=== PATIENT | female | born 1970 | race Caucasian/White ===

== ENCOUNTER 2023-02-23 12:39 | Emergency (ER) | payer SELFPAY ==
[2023-02-23 13:10] LABS: Absolute Lymphocytes (CBC) 1.9 K/uL (0.7-4.9); Hematocrit 43.4 % (36.0-45.0); MCV 89.3 fL (80-100); MPV 7.1 fL (7.6-11.3); Platelets 393 thou/uL (152-406); RBC Red Blood Cell Count 4.86 M/uL (3.86-4.86)
[2023-02-23] MEDS ORDERED: ONDANSETRON 4 MG/2 ML VIAL ONE (13:16)
[2023-02-23] MEDS ORDERED: MORPHINE 4 MG/ML SYR ONE (13:16)
[2023-02-23] MEDS ORDERED: NA CHLORIDE 0.9% 1,000 ML ONE (13:16)
[2023-02-23 13:20] LABS: Specific Gravity 1.015 (1.005-1.030); Urine Bacteria None Seen /HPF (<20); Urine Bilirubin NEGATIVE (Negative); Urine Blood Negative (Negative); Urine Clarity Turbid (Clear); Urine Color Light-Yellow (Yellow); Urine Glucose NEGATIVE (Negative); Urine Protein NEGATIVE (Negative); Urine RBC <5 /HPF (None Seen); Urine Urobilinogen Normal (Normal)
[2023-02-23 13:26] LABS: Albumin 4.1 g/dL (3.4-5.0); Bilirubin Total 0.4 mg/dL (0.2-1.0); Potassium 3.1 mEq/L (3.5-5.1); Protein, Total 7.7 g/dL (6.4-8.2)
[2023-02-23] MEDS ORDERED: HYDROMORPHONE HCL 1 MG/ML INJ ONE (14:00)
--- NOTE | 2023-02-23 14:13 | RAD REPORT ---
EXAM DESCRIPTION: CT - Abdomen Pelvis W Contrast - 02/23/2023 1:41 pm CLINICAL HISTORY: Abdominal pain COMPARISON: none. TECHNIQUE: Computed axial tomography of the abdomen pelvis was obtained. 100 cc Isovue-300 was admin istered intravenously. Oral contrast was not requested which limits evaluation of bowel and appendix All CT scans are performed using dose optimization technique as appropriate and may include automated exposure control or mA/KV adjustment according to patient size. FINDINGS: There is a delay concentration of contrast within the right kidney. A 9 centimeter round f luid collection extends from the medial aspect of the right kidney and displaces the second portion o f the duodenum medially. It also compresses the IVC and gallbladder. Ill-defined fluid lies adjacent to the medial aspect of 9 centimeter round fluid collection and extends adjacent to the pancreatic he ad and third portion of the duodenum. Mild dilatation of the right renal calices is present. The liver, spleen, remainder the pancreas, adrenals and left kidney are unremarkable. There is no evidence diverticulitis. 2 centimeter left ovarian cyst Small to moderate umbilical hernia contains fat. Small to moderate right inguinal hernia Post surgical changes involve the lumbar spine IMPRESSION: 9 centimeter round fluid collection extends from the medial aspect of the right kidney. This may represent a parapelvic cyst which compresses the right renal pelvis. The surrounding fluid c ould be leakage from the cyst. Another consideration but probably less likely is that this represents a massively dilated right renal pelvis. A CT scan of the abdomen with delayed images would be helpfu l to differentiate between the 2.
--- NOTE | 2023-02-23 15:58 | EDPHYS ---
Physician Documentation [facility] Name: Millicent Raygoza Age: 53 yrs Sex: Female : 1970 Arrival Date: 02/23/2023 Time: 12:39 Bed 20 Private MD: ED Physician Juan Bro HPI: 02/23 17:43 This 53 yrs old Female presents to ER via Ambulatory with complaints of Flank Pain. kb 17:43 The patient presents with abdominal pain right lower quadrant. Onset: The kb symptoms/episode began/occurred 3 day(s) ago, and became worse today. The symptoms radiate to the right flank. Associated signs and symptoms: Pertinent positives: nausea and vomiting, Pertinent negatives: fever. The symptoms are described as constant. Modifying factors: The symptoms are alleviated by nothing, the symptoms are aggravated by pressure. Severity of pain: At its worst the pain was moderate severe in the emergency department the pain is unchanged. The patient has not experienced similar symptoms in the past. The patient has not recently seen a physician. Pt reports RLQ pain that started Dyllan and has gotten worse since onset. . 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 - Social history:: Smoking status: Patient denies any tobacco usage or history of. ROS: 17:39 Constitutional: Negative for fever, chills, and weight loss. kb 17:39 Abdomen/GI: Positive for abdominal pain, nausea and vomiting. 17:39 Back: Positive for flank pain, on the right. 17:39 All other systems are negative. Exam: 17:39 Constitutional: This is a well developed, well nourished patient who is awake, alert, kb and in no acute distress. Head/Face: Normocephalic, atraumatic. ENT: Moist Mucous membranes Cardiovascular: Regular rate and rhythm with a normal S1 and S2. No gallops, murmurs, or rubs. No pulse deficits. Respiratory: Respirations even and unlabored. No increased work of breathing. Talking in full sentences Back: No spinal tenderness. No costovertebral tenderness. Full range of motion. Skin: Warm, dry with normal turgor. Normal color. MS/ Extremity: Pulses equal, no cyanosis. Neurovascular intact. Full, normal range of motion. Neuro: Awake and alert, GCS 15, oriented to person, place, time, and situation. Moves all extremities. Normal gait. 17:39 Abdomen/GI: Inspection: abdomen appears normal, Bowel sounds: normal, in all quadrants, Palpation: soft, in all quadrants, moderate abdominal tenderness, in the right lower quadrant. Vital Signs: 12:40 BP 145 / 80; Pulse 72; Resp 20; Temp 99(TE); Pulse Ox 99% on R/A; Weight 79.38 kg; ss Height 5 ft. 4 in. ; Pain 9/10; 14:05 BP 155 / 73; Pulse 64; Resp 15; Pulse Ox 100% ; Pain 6/10; jl7 16:00 BP 140 / 65; Pulse 64; Resp 15; Pulse Ox 100% ; jl7 12:40 Body Mass Index 30.04 (79.38 kg, 162.56 cm) ss 12:40 Pain Scale: Adult ss 14:05 Pain Scale: Adult jl7 MDM: 12:46 Patient medically screened. kb 17:40 Differential diagnosis: nephrolithiasis, pyelonephritis, UTI, appendicitis. Data kb reviewed: vital signs, nurses notes. Consideration of Admission/Observation Escalation of care including admission/observation considered. Pt educated on results and need for transfer to [place] for urology. Pt states she does not want to be transferred or admitted. States they are here from out of state and are going home tomorrow. States she will go to the hospital when they get back home. Pt educated on risks of leaving. Pt and still wish to be discharged. . Counseling: I had a detailed discussion with the patient and/or guardian regarding: the historical points, exam findings, and any diagnostic results supporting the discharge/admit diagnosis, lab results, radiology results, the need to transfer to another facility. Refusal of service: The patient/guardian displays adequate decision making capability and despite a detailed discussion of alternatives, benefits, risks, and consequences refuses: Admission to the hospital for further work-up and treatment. ED course: Patient has decided to leave our facility AGAINST MEDICAL ADVICE. I have assessed the patient's ability to make an informed decision and it is my opinion at this time that the patient has the medical decision-making capacity to comprehend information regarding current medical condition and appreciates the impact of the disease or condition and the consequences of various options for treatment, including foregoing treatment. The patient possesses the ability to evaluate all treatment options, compare the risk and benefits of each option, communicate choice and is able to make rational choices. I have explained to the patient further testing, treatment, and evaluation I would like to perform during the current emergency department visit as well as any possible alternatives that could be accomplished in a timely manner. I have outlined the possible risk of foregoing any or all of these interventions and the patient understands and acknowledges that the decision to leave may result in undesirable consequences such as , permanent disability, and/or loss of current lifestyle. Even though leaving AMA a is not ideal, I have instructed the patient to follow any discharge instructions given, take any medications prescribed and resume care as soon as possible with another provider. Additionally, I have clearly stated that the patient is welcome to return at any time to continue care at our facility.. 02/23 12:50 Order name: CBC with Diff; Complete Time: 13:18 kb 02/23 12:50 Order name: CMP; Complete Time: 13:32 kb 02/23 12:50 Order name: Lipase; Complete Time: 13:32 kb 02/23 12:50 Order name: Urinalysis w/ reflexes; Complete Time: 13:32 kb 02/23 12:50 Order name: CT Abd/Pelvis - IV Contrast Only; Complete Time: 14:16 kb 02/23 12:50 Order name: IV Saline Lock; Complete Time: 13:04 kb 02/23 12:50 Order name: Labs collected and sent; Complete Time: 13:04 kb Administered Medications: 13:11 Drug: NS 0.9% IV 1000 ml Route: IV; Rate: 1 bolus; Site: right antecubital; hb 16:00 Follow up: IV Status: Completed infusion jl7 16:08 Follow up: IV Intake: 600ml 7 13:12 Drug: Ondansetron IVP 4 mg Route: IVP; Site: right antecubital; hb 16:08 Follow up: Response: No adverse reaction 7 13:12 Drug: morphine IVP or IV 4 mg Route: IVP; Infused Over: 4 mins; Site: right antecubital;hb 14:00 Follow up: Response: No adverse reaction; Pain is unchanged, physician notified jl7 13:53 Drug: HYDROmorphone IVP 1 mg Route: IVP; Site: right antecubital; jl7 14:15 Follow up: Response: No adverse reaction; Marked relief of symptoms; Pain is decreased jl7 16:07 Drug: Potassium Chloride PO 40 mEq Route: PO; jl7 16:07 Follow up: Response: Medication administered at discharge. jl7 Disposition Summary: 02/23/23 15:57 Discharge Ordered Location: Home kb Condition: Stable kb Diagnosis - 9cm fluid collection extends from the medial aspect of right kidney kb Followup: kb - With: Emergency Department - When: As needed - Reason: Worsening of condition Followup: kb - With: Private Physician - When: 2 - 3 days - Reason: Recheck today's complaints, Continuance of care, Re-evaluation by your physician Discharge Instructions: - Discharge Summary Sheet kb - Renal Mass kb Forms: - Medication Reconciliation Form kb - Thank You Letter kb - Antibiotic Education kb - Prescription Opioid Use kb - Patient Portal Instructions kb - Leadership Thank You Letter kb Prescriptions: - Tramadol 50 mg Oral Tablet - take 1 tablet by ORAL route every 8 hours as needed; 12 tablet; Refills: 0, kb Product Selection Permitted Signatures: Dispatcher [employer] Kaylen Thompson FNP-C FNP-Savita Stokes, RN RN Chanel Branch, Christine Delcid RN, RN RN jl7
--- NOTE | 2023-02-23 15:58 | ER ---
Nurse's Notes [facility] Name: Millicent Raygoza Age: 53 yrs Sex: Female : 1970 Arrival Date: 02/23/2023 Time: 12:39 Bed 20 Private MD: Diagnosis: 9cm fluid collection extends from the medial aspect of right kidney Presentation: 02/23 12:40 Chief complaint: Patient states: R flank pain that radiates towards abdomen that began ss last night is getting worse throughout the day. +nausea. Coronavirus screen: Client denies travel out of the [place] in the last 14 days. Ebola Screen: Patient denies exposure to infectious person. Patient denies travel to an Ebola-affected area in the 21 days before illness onset. Initial Sepsis Screen: Does the patient meet any 2 criteria? No. Patient's initial sepsis screen is negative. Does the patient have a suspected source of infection? No. Patient's initial sepsis screen is negative. Risk Assessment: Do you want to hurt yourself or someone else? Patient reports no desire to harm self or others. Onset of symptoms was February 23, 2023. 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 - Social history:: Smoking status: Patient denies any tobacco usage or history of. Screenin:13 [facility] ED Fall Risk Assessment (Adult) Score/Fall Risk Level 0 - 2 = Low Risk hb Oriented to surroundings, Maintained a safe environment. Abuse screen: Denies threats or abuse. Denies injuries from another. Nutritional screening: No deficits noted. Tuberculosis screening: No symptoms or risk factors identified. Assessment: 13:13 General: Appears in no apparent distress. uncomfortable, Behavior is cooperative, hb anxious, crying. Pain: Pain currently is 9 out of 10 on a pain scale. Neuro: Level of Consciousness is awake, alert, obeys commands, Oriented to person, place, time, situation. Cardiovascular: Patient's skin is warm and dry. Respiratory: Respiratory effort is even, unlabored, Respiratory pattern is regular, symmetrical. GI: Reports nausea. : No signs and/or symptoms were reported regarding the genitourinary system. EENT: No signs and/or symptoms were reported regarding the EENT system. Derm: Skin is pink, warm \T\ dry. Musculoskeletal: Reports right flank pain. 13:50 Reassessment: Pt reporting continued severe pain, ERD notified, VO for 1mg Dilaudid IVP.jl7 14:15 Reassessment: Pain decreased, pt appears relaxed, able top sit back and close eyes. jl7 15:35 Reassessment: ERP at bedside discussing results and POC. jl7 Vital Signs: 12:40 BP 145 / 80; Pulse 72; Resp 20; Temp 99(TE); Pulse Ox 99% on R/A; Weight 79.38 kg; ss Height 5 ft. 4 in. ; Pain 9/10; 14:05 BP 155 / 73; Pulse 64; Resp 15; Pulse Ox 100% ; Pain 6/10; jl7 16:00 BP 140 / 65; Pulse 64; Resp 15; Pulse Ox 100% ; jl7 12:40 Body Mass Index 30.04 (79.38 kg, 162.56 cm) ss 12:40 Pain Scale: Adult ss 14:05 Pain Scale: Adult jl7 ED Course: 12:40 Patient arrived in ED. ss 12:41 Triage completed. ss 12:41 Arm band placed on right wrist. ss 12:45 Kaylen Merrill FNP-C [facility]. kb 12:45 Juan Bro MD is Attending Physician. kb 12:45 Christine Major RN is Primary Nurse. jl7 13:03 Inserted saline lock: 20 gauge 24 gauge antecubital area, using aseptic technique. hb Blood collected. 13:04 CBC with Diff Sent. bc6 13:04 CMP Sent. bc6 13:04 Lipase Sent. bc6 13:04 Urinalysis w/ reflexes Sent. bc6 13:15 Patient has correct armband on for positive identification. Provided Education on: . hb 13:42 CT Abd/Pelvis - IV Contrast Only In Process Unspecified. EDMS 16:00 No provider procedures requiring assistance completed. IV discontinued, intact, jl7 bleeding controlled, No redness/swelling at site. Pressure dressing applied. Administered Medications: 13:11 Drug: NS 0.9% IV 1000 ml Route: IV; Rate: 1 bolus; Site: right antecubital; hb 16:00 Follow up: IV Status: Completed infusion jl7 16:08 Follow up: IV Intake: 600ml jl7 13:12 Drug: Ondansetron IVP 4 mg Route: IVP; Site: right antecubital; hb 16:08 Follow up: Response: No adverse reaction jl7 13:12 Drug: morphine IVP or IV 4 mg Route: IVP; Infused Over: 4 mins; Site: right antecubital;hb 14:00 Follow up: Response: No adverse reaction; Pain is unchanged, physician notified jl7 13:53 Drug: HYDROmorphone IVP 1 mg Route: IVP; Site: right antecubital; jl7 14:15 Follow up: Response: No adverse reaction; Marked relief of symptoms; Pain is decreased jl7 16:07 Drug: Potassium Chloride PO 40 mEq Route: PO; jl7 16:07 Follow up: Response: Medication administered at discharge. jl7 Medication: 13:17 VIS not applicable for this client. hb Intake: 16:08 IV: 600ml; Total: 600ml. jl7 Outcome: 15:57 Discharge ordered by . nelsy 16:00 Discharged to home ambulatory, with family. jl7 16:00 Condition: stable 16:00 Discharge instructions given to patient, family, Instructed on discharge instructions, follow up and referral plans. medication usage, Demonstrated understanding of instructions, follow-up care, medications, Prescriptions given X 1. 16:14 Patient left the ED. jl7 Signatures: Dispatcher [employer] EDKS Kaylen Merrill, BROOKE SANCHEZ-Savita Stokes RN RN Chanel Branch RN RN Christine Major RN RN jl7 Rebeka Mathur bc6
[2023-02-23] MEDS ORDERED: POTASSIUM CL SA 10 MEQ TAB PO ONE (16:08)
[2023-02-23 16:54] VITALS: TEMP 99
[2023-02-23 16:55] VITALS: O2SAT 100
[2023-02-23 16:56] VITALS: BP 140/65
== END 2023-02-23 16:14 | disposition home or self-care (01) ==
LOC: ER 12:39
DX: N13.30 Unspecified hydronephrosis (principal)
CPT/HCPCS: 36415; 74177; 80053; 81001; 83690; 85025; 96361; 96374; 96375; 99284; J1170; J2405; J7030; Q9967